=== PATIENT | male | born 1985 | race American Indian/Alaskan Native ===

== ENCOUNTER 2016-07-11 02:26 | Emergency (ER) | payer MEDICAID ==
[2016-07-11 03:37] LABS: Anion Gap 23 mmol/L; BUN/Creatinine Ratio 13.84; Blood Urea Nitrogen 18 mg/dL (9-20); Calcium 9.5 mg/dL (8.4-10.2); Carbon Dioxide 19 mmol/L (22-30); Chloride 102.2 mmol/L (98-107); Glucose 111 mg/dL (75-100); Potassium 3.9 mmol/L (3.6-5.0); Sodium 140 mmol/L (137-145)
[2016-07-11 03:40] LABS: Basophils % (Auto) 0.6 % (0.0-1.8); Eosinophils % (Auto) 1.2 % (0.0-4.3); Hematocrit 44.3 % (35.5-45.6); Hemoglobin 14.6 gm/dl (11.8-15.2); Mean Corpuscular HGB Conc 33 % (32-34); Mean Corpuscular Hemoglobin 28 pg (28-32); Mean Corpuscular Volume 86 fl (84-94); Platelet Count 381 K/mm3 (140-440); Red Blood Count 5.16 M/mm3 (3.65-5.03); Red Cell Distribution Width 13.8 % (13.2-15.2)
--- NOTE | 2016-07-11 03:43 | XRay Report ---
FINAL REPORT PROCEDURE: XR CHEST ROUTINE 2V TECHNIQUE: PA and lateral chest radiographs were obtained. CPT 65384 HISTORY: COUGH/CHEST PAIN COMPARISON: No prior studies are available for comparison. FINDINGS: Heart: Normal. Mediastinum/Vessels: Normal. Lungs/Pleural space: Normal. Bony thorax: No acute osseous abnormality. Other: IMPRESSION: There is no evidence of an acute cardiopulmonary process.
[2016-07-11] MEDS ORDERED: DUONEB 0.5 MG-3 MG/3 ML SOLN IH ONE (07:37)
[2016-07-11] MEDS ORDERED: DELTASONE PO ONE (07:37)
--- NOTE | 2016-07-11 07:38 | Emergency Department Report ---
HPI - General Chief Complaint: Upper Respiratory Infection Time Seen by Provider: 07/11/16 07:31 - HPI HPI: Patient here reports that he's been coughing times one week. He reported in triage that he was feeling short of breath but he said he is not feeling short of breath anymore his is coughing. He said when he coughs is having pain in his chest and upper back. It is 7 out of 10 only with coughing. Has a history of heart disease, recent long distance travel, hormone therapy, recent surgery, denies any history of blood clots personally or in his family. Denies any fever or chills or nausea vomiting. He also reports that he is very congested in his nose and he is coughing up yellow-green stuff. He said that he is coughing so much that he think he pulled a muscle in his chest and back. ED Past Medical Hx - Past Medical History Previous Medical History?: No - Surgical History Past Surgical History?: Yes Additional Surgical History: testicle surgery - Family History Family history: diabetes, hypertension - Social History Smoking Status: Current Every Day Smoker Substance Use Type: Alcohol, Marijuana - Medications Home Medications: Home Medications Medication Instructions Recorded Confirmed Last Taken Type Hydrocodone Bit/Acetaminophen 1 each PO Q6H PRN #12 tablet 02/28/13 Unknown Rx [Lortab 5-500 Tablet] Loratadine/Pseudoephedrine 1 each PO QDAY #30 tablet 06/24/14 Unknown Rx [Claritin-D 24HR] Albuterol Sulfate [Ventolin HFA] 2 puff IH Q4H PRN #1 hfa.aer.ad 07/11/16 Unknown Rx Amoxicillin/K Clav Tab [Augmentin 1 tab PO Q12HR #20 tab 07/11/16 Unknown Rx 875 mg] Cetirizine HCl [ZyrTEC] 10 mg PO QDAY #14 capsule 07/11/16 Unknown Rx guaiFENesin/CODEINE [Robitussin AC] 5 ml PO TID PRN #75 ml 07/11/16 Unknown Rx predniSONE [Deltasone] 50 mg PO QDAY #5 tab 07/11/16 Unknown Rx ED Review of Systems ROS: Stated complaint: CHEST PAIN/SOB Other details as noted in HPI Comment: All other systems reviewed and negative Constitutional: denies: chills, fever ENT: congestion. denies: ear pain, throat pain Respiratory: cough. denies: orthopnea, shortness of breath, SOB with exertion, SOB at rest, stridor, wheezing Cardiovascular: other (chest wall bilaterally with coughing). denies: palpitations, edema, syncope Gastrointestinal: denies: abdominal pain, nausea, vomiting, diarrhea Musculoskeletal: back pain (upper back pain with coughing), myalgia. denies: arthralgia Skin: denies: rash Neurological: denies: headache, numbness, abnormal gait, vertigo Physical Exam - Physical Exam Vital Signs: Vital Signs 07/11/16 02:42 Temperature 97.6 F Pulse Rate 95 H Respiratory 28 H Rate Blood Pressure 141/97 O2 Sat by Pulse 100 Oximetry Vital Signs 07/11/16 07/11/16 07/11/16 02:42 07:38 07:53 Temperature 97.6 F Pulse Rate 95 H 88 Pulse Rate [ 90 Bilateral Upper Lobe] Respiratory 28 H 18 Rate Respiratory 18 Rate [Bilateral Upper Lobe] Blood Pressure 141/97 O2 Sat by Pulse 100 100 Oximetry 07/11/16 07:59 Temperature Pulse Rate Pulse Rate [ 94 H Bilateral Upper Lobe] Respiratory Rate Respiratory 18 Rate [Bilateral Upper Lobe] Blood Pressure O2 Sat by Pulse Oximetry General: This is a 30-year-old male well-nourished well-developed in no acute distress. Physical Exam: Head: Normocephalic atraumatic Mouth: Moist, no pharyngeal exudate or erythema. Uvula is midline and oral airway is patent. No facial swelling. No peritonsillar abscesses. Nose: Congested with erythema to mucosa. Clear Drainage. Maxillary and frontal sinuses nontender to palpate Neck: Supple, no C-spine tenderness, no tracheal deviation. Nontender to palpate. no adenopathy Ears: Bilateral TMs congested without erythema. Bilateral EAC without any redness swelling or drainage. Abdomen: Soft, nontender to palpate in all quadrants, normal bowel sounds in all quadrant and negative CVA tenderness bilaterally. Back: No vertebral or paraspinal tenderness. No saddle anesthesia. Patient able to ambulate without any difficulties. Negative SLR bilaterally.. Eyes: Bilateral pupils equal and reactive to light, bilateral EOM intact. Bilateral sclera and conjunctiva without injection. Normal accommodation. No Lungs: scattered Wheezing throughout all lung garcia. Normal work of breathing . Dry cough extremity; No CCE. +2 pulses. No neurovascular compromise Cardiovascular: S1-S2, regular rate rhythm. No murmurs. Skin: clean Dry and intact no rash no lesions Psych: Normal mood and behavior ED Course Vital Signs 07/11/16 02:42 Temperature 97.6 F Pulse Rate 95 H Respiratory 28 H Rate Blood Pressure 141/97 O2 Sat by Pulse 100 Oximetry Vital Signs 07/11/16 07/11/16 07/11/16 02:42 07:38 07:53 Temperature 97.6 F Pulse Rate 95 H 88 Pulse Rate [ 90 Bilateral Upper Lobe] Respiratory 28 H 18 Rate Respiratory 18 Rate [Bilateral Upper Lobe] Blood Pressure 141/97 O2 Sat by Pulse 100 100 Oximetry 07/11/16 07:59 Temperature Pulse Rate Pulse Rate [ 94 H Bilateral Upper Lobe] Respiratory Rate Respiratory 18 Rate [Bilateral Upper Lobe] Blood Pressure O2 Sat by Pulse Oximetry - Reevaluation(s) Reevaluation #1: 07/11/16 08:41 Patient stable throughout ED course He was given Deltasone 60 mg by mouth and DuoNeb times one nebulizer and said that he is feeling better. Denies any chest pain or shortness of breath. 07/11/16 08:42 Reevaluation #2: 07/11/16 08:51 reevaluation, lungs sounds are clear. Face is dry cough. ED Medical Decision Making - Lab Data Result diagrams: 07/11/16 02:51 07/11/16 02:51 Lab Results 07/11/16 07/11/16 Range/Units 02:51 02:51 WBC 9.0 (4.5-11.0) K/mm3 RBC 5.16 H (3.65-5.03) M/mm3 Hgb 14.6 (11.8-15.2) gm/dl Hct 44.3 (35.5-45.6) % MCV 86 (84-94) fl MCH 28 (28-32) pg MCHC 33 (32-34) % RDW 13.8 (13.2-15.2) % Plt Count 381 (140-440) K/mm3 Lymph % (Auto) 29.9 (13.4-35.0) % [place] % (Auto) 7.3 (0.0-7.3) % Eos % (Auto) 1.2 (0.0-4.3) % Baso % (Auto) 0.6 (0.0-1.8) % Lymph # 2.7 (1.2-5.4) K/mm3 [place] # 0.7 (0.0-0.8) K/mm3 Eos # 0.1 (0.0-0.4) K/mm3 Baso # 0.1 (0.0-0.1) K/mm3 Seg Neutrophils % 61.0 (40.0-70.0) % Seg Neutrophils # 5.5 (1.8-7.7) K/mm3 Sodium 140 (137-145) mmol/L Potassium 3.9 (3.6-5.0) mmol/L Chloride 102.2 (98-107) mmol/L Carbon Dioxide 19 L (22-30) mmol/L Anion Gap 23 mmol/L BUN 18 (9-20) mg/dL Creatinine 1.3 (0.8-1.5) mg/dL Estimated GFR > 60 ml/min BUN/Creatinine Ratio 13.84 % Glucose 111 H (75-100) mg/dL Calcium 9.5 (8.4-10.2) mg/dL - EKG Data -: EKG Interpreted by Me (Dr. Jackman) EKG shows normal: sinus rhythm (at 90 bpm) Rate: normal - EKG Data Interpretation: no acute changes, nonspecific ST-T wave rip - Radiology Data Radiology results: report reviewed Chest x-ray revealed no acute cardiopulmonary findings. - Medical Decision Making ED course: Patient with acute bronchitis, cough And musculoskeletal pain secondary to coughing. Chest x-ray revealed no acute cardiopulmonary processes , No acute findings and EKG. Lab work is stable with normal white count .on PERC Rule No need for further workup, as <2% chance of PE. Patient was given DuoNeb 1 and Deltasone 60 mg by mouth in emergency room. vital Signs are stable. I discussed lab results, diagnostic and EKG with patient and I also discussed the diagnosis and treatment plan and is in agreement. Patient discharged home to follow up with his primary care and if he does not have one to follow-up at [facility] in 3-5 days. Discharged home in stable condition with prescription for Guaifenessin with codeine, Ventolin, prednisone , Augmentin and Zyrtec. Critical care attestation.: If time is entered above; I have spent that time in minutes in the direct care of this critically ill patient, excluding procedure time. ED Disposition Clinical Impression: Cough, Musculoskeletal pain Acute bronchitis Qualifiers: Bronchitis organism: unspecified organism Qualified Code(s): J20.9 - Acute bronchitis, unspecified Disposition: DISCHARGED TO HOME OR SELFCARE Is pt being admited?: No Does the pt Need Aspirin: No Condition: Stable Instructions: Acute Bronchitis (ED), Acute Cough (ED) Additional Instructions: Please take antibiotic as prescribed Increase her fluid intake Follow-up with primary care or at [facility] in 3-5 days Cough medicine will cause drowsiness so, please do not drive or operate heavy machinery while taking this medication. Prescriptions: Albuterol Sulfate [Ventolin HFA] 2 puff IH Q4H PRN #1 hfa.aer.ad PRN Reason: wheezing and cough Amoxicillin/K Clav Tab [Augmentin 875 mg] 1 tab PO Q12HR #20 tab Cetirizine HCl [ZyrTEC] 10 mg PO QDAY #14 capsule guaiFENesin/CODEINE [Robitussin AC] 5 ml PO TID PRN #75 ml PRN Reason: Cough predniSONE [Deltasone] 50 mg PO QDAY #5 tab Referrals: PRIMARY CARE, [Primary Care Provider] - 3-5 Days [facility] [Outside] - 3-5 Days Forms: Work/School Release Form(ED)
[2016-07-11 09:31] VITALS: BP 138/90
== END 2016-07-11 09:30 | disposition home or self-care (01) ==
LOC: ED 02:26
DX: J20.9 Acute bronchitis, unspecified (principal); M79.1 Myalgia; F17.200 Nicotine dependence, unspecified, uncomplicated; F12.90 Cannabis use, unspecified, uncomplicated
CPT/HCPCS: 36415; 71020; 80048; 85025; 93005; 93010; 94640; 99284; J7512

== ENCOUNTER 2017-06-15 11:00 | Outpatient (CLI) | payer MEDICAID | END 2017-06-15 11:01 | disposition home or self-care (01) | LOC: SLR 11:00 | PROVIDERS: ATTEND Otolaryngology | DX: G47.30 Sleep apnea, unspecified (principal); I10 Essential (primary) hypertension; R40.0 Somnolence | CPT/HCPCS: 95810 ==

== ENCOUNTER → 2017-07-15 | Outpatient (CLI) | payer MEDICAID | LOC: SLR 11:00 | PROVIDERS: ATTEND Otolaryngology | DX: G47.33 Obstructive sleep apnea (adult) (pediatric) (principal); F17.210 Nicotine dependence, cigarettes, uncomplicated | CPT/HCPCS: 95811 ==

== ENCOUNTER 2017-09-17 21:25 | Emergency (ER) | payer MEDICAID ==
[2017-09-17] MEDS ORDERED: NACL 0.9% 500 ML 500 ML ONE (22:28)
[2017-09-17 22:29] LABS: Basophils % (Auto) 0.2 % (0.0-1.8); Eosinophils # (Auto) 0.1 K/mm3 (0.0-0.4); Eosinophils % (Auto) 0.6 % (0.0-4.3); Hematocrit 49.7 % (35.5-45.6); Hemoglobin 16.1 gm/dl (11.8-15.2); Lymphocytes # (Auto) 0.6 K/mm3 (1.2-5.4); Lymphocytes % (Auto) 4.3 % (13.4-35.0); Mean Corpuscular HGB Conc 33 % (32-34); Mean Corpuscular Hemoglobin 28 pg (28-32); Mean Corpuscular Volume 86 fl (84-94); Monocytes % (Auto) 6.6 % (0.0-7.3); Platelet Count 397 K/mm3 (140-440); Red Blood Count 5.78 M/mm3 (3.65-5.03)
[2017-09-17 22:45] LABS: Alanine Aminotransferase 27 units/L (7-56); BUN/Creatinine Ratio 13; Blood Urea Nitrogen 14 mg/dL (9-20); Calcium 9.7 mg/dL (8.4-10.2); Hemolysis Index 1
[2017-09-17 23:40] VITALS: BP 143/80
[2017-09-17] MEDS ORDERED: MORPHINE IV ONE (23:53)
[2017-09-17] MEDS ORDERED: ZOFRAN IV ONE (23:53)
[2017-09-17] MEDS ORDERED: NACL 0.9% 1000 ML 1,000 ML IV ONE (23:53)
[2017-09-17] MEDS ORDERED: PEPCID IV ONE (23:54)
[2017-09-18 00:18] LABS: Bilirubin,Urine NEG (Negative); Blood,Urine NEG (Negative); Color,Urine Yellow (Yellow); Mucus,Urine FEW /HPF; Urobilinogen,Urine < 2.0 mg/dL (<2.0)
--- NOTE | 2017-09-18 00:18 | Emergency Department Report ---
HPI - General Chief Complaint: Abdominal Pain Time Seen by Provider: 09/17/17 23:18 - HPI HPI: Room 25 The patient is a 32-year-old male presenting with chief complaint of abdominal pain. The patient states he was in his usual state of health until this afternoon approximately 30 minutes after eating leftover jb greens and cheesecake he developed nausea vomiting diarrhea and diffuse aching abdominal pain dizziness and body aches. Patient denies any history of fever. There are no sick contacts in the home. The patient gives his pain is scored 3-4/10 Location: Diffuse abdomen Duration: Constant since 16:30 Quality: Aching Severity: 3-4/10 Modifying factors: [see above] Context: [see above] Mode of transportation: [not driving] ED Past Medical Hx - Past Medical History Previous Medical History?: No - Surgical History Past Surgical History?: Yes Additional Surgical History: Testicular torsion repair - Family History Family history: no significant - Social History Smoking Status: Current Every Day Smoker (1/7 pack per day) Substance Use Type: Alcohol, Marijuana - Medications Home Medications: Home Medications Medication Instructions Recorded Confirmed Last Taken Type Hydrocodone Bit/Acetaminophen 1 each PO Q6H PRN #12 tablet 02/28/13 Unknown Rx [Lortab 5-500 Tablet] Loratadine/Pseudoephedrine 1 each PO QDAY #30 tablet 06/24/14 Unknown Rx [Claritin-D 24HR] Albuterol Sulfate [Ventolin HFA] 2 puff IH Q4H PRN #1 hfa.aer.ad 07/11/16 Unknown Rx Amoxicillin/K Clav Tab [Augmentin 1 tab PO Q12HR #20 tab 07/11/16 Unknown Rx 875 mg] Cetirizine HCl [ZyrTEC] 10 mg PO QDAY #14 capsule 07/11/16 Unknown Rx guaiFENesin/CODEINE [Robitussin AC] 5 ml PO TID PRN #75 ml 07/11/16 Unknown Rx predniSONE [Deltasone] 50 mg PO QDAY #5 tab 07/11/16 Unknown Rx Ciprofloxacin HCl [Cipro] 500 mg PO BID #20 tablet 09/18/17 Unknown Rx Diphenoxylate HCl/Atropine 2 each PO QID PRN #20 tablet 09/18/17 Unknown Rx [Lomotil 2.5-0.025 mg Tablet] HYDROcodone/APAP 5-325 [[place] 1 - 2 each PO Q6HR PRN #10 tablet 09/18/17 Unknown Rx 5/325] Promethazine [Phenergan TAB] 25 mg PO Q6HR PRN #20 tab 09/18/17 Unknown Rx Promethazine [Phenergan] 25 mg AL Q6HR PRN #5 supp.rect 09/18/17 Unknown Rx ED Review of Systems ROS: Stated complaint: ABD PAIN Other details as noted in HPI Physical Exam - Physical Exam Vital Signs: Vital Signs 09/17/17 09/17/17 09/17/17 22:16 22:30 22:45 Pulse Rate 101 H 96 H 87 Respiratory 15 13 13 Rate Blood Pressure 123/69 123/69 O2 Sat by Pulse 100 97 98 Oximetry 09/17/17 09/17/17 09/17/17 23:00 23:15 23:31 Pulse Rate 97 H 101 H 100 H Respiratory 19 16 15 Rate Blood Pressure 143/80 143/80 143/80 O2 Sat by Pulse 93 99 95 Oximetry 09/17/17 23:37 Pulse Rate Respiratory 22 Rate Blood Pressure O2 Sat by Pulse 99 Oximetry ED Course Vital Signs 09/17/17 09/17/17 09/17/17 22:16 22:30 22:45 Pulse Rate 101 H 96 H 87 Respiratory 15 13 13 Rate Blood Pressure 123/69 123/69 O2 Sat by Pulse 100 97 98 Oximetry 09/17/17 09/17/17 09/17/17 23:00 23:15 23:31 Pulse Rate 97 H 101 H 100 H Respiratory 19 16 15 Rate Blood Pressure 143/80 143/80 143/80 O2 Sat by Pulse 93 99 95 Oximetry 09/17/17 23:37 Pulse Rate Respiratory 22 Rate Blood Pressure O2 Sat by Pulse 99 Oximetry ED Medical Decision Making - Lab Data Result diagrams: 09/17/17 22:20 09/17/17 22:20 Laboratory Tests 09/17/17 09/17/17 09/17/17 22:20 22:20 22:20 WBC 14.7 H RBC 5.78 H Hgb 16.1 H Hct 49.7 H MCV 86 MCH 28 MCHC 33 RDW 14.0 Plt Count 397 Lymph % (Auto) 4.3 L [place] % (Auto) 6.6 Eos % (Auto) 0.6 Baso % (Auto) 0.2 Lymph # 0.6 L [place] # 1.0 H Eos # 0.1 Baso # 0.0 Seg Neutrophils % 88.3 H Seg Neutrophils # 13.0 H Sodium 140 Potassium 4.1 Chloride 98.8 Carbon Dioxide 27 Anion Gap 18 BUN 14 Creatinine 1.1 Estimated GFR > 60 BUN/Creatinine Ratio 13 Glucose 112 H Calcium 9.7 Total Bilirubin 0.70 AST 23 ALT 27 Alkaline Phosphatase 77 Total Protein 8.1 Albumin 5.0 Albumin/Globulin Ratio 1.6 Lipase 30 Urine Color Urine Turbidity Urine pH Ur Specific [place] Urine Protein Urine Glucose (UA) Urine Ketones Urine Blood Urine Nitrite Urine Bilirubin Urine Urobilinogen Ur Leukocyte Esterase Urine WBC (Auto) Urine RBC (Auto) U Epithel Cells (Auto) Urine Mucus 09/17/17 Unknown WBC RBC Hgb Hct MCV MCH MCHC RDW Plt Count Lymph % (Auto) [place] % (Auto) Eos % (Auto) Baso % (Auto) Lymph # [place] # Eos # Baso # Seg Neutrophils % Seg Neutrophils # Sodium Potassium Chloride Carbon Dioxide Anion Gap BUN Creatinine Estimated GFR BUN/Creatinine Ratio Glucose Calcium Total Bilirubin AST ALT Alkaline Phosphatase Total Protein Albumin Albumin/Globulin Ratio Lipase Urine Color Yellow Urine Turbidity Clear Urine pH 8.0 H Ur Specific [place] 1.019 Urine Protein 30 mg/dl Urine Glucose (UA) Neg Urine Ketones Neg Urine Blood Neg Urine Nitrite Neg Urine Bilirubin Neg Urine Urobilinogen < 2.0 Ur Leukocyte Esterase Neg Urine WBC (Auto) 1.0 Urine RBC (Auto) 2.0 U Epithel Cells (Auto) < 1.0 Urine Mucus Few - Radiology Data Radiology results: report reviewed (CT abdomen and pelvis), image reviewed (CT abdomen and pelvis) [address] [address] Cat Scan Report Signed Patient: EMELY FLOR MR#: [id number] : 1985 Acct:[id number] Age/Sex: 32 / M ADM Date: 09/17/17 Loc: ED Attending Dr: Ordering Physician: STEPHANIE DEJESUS MD Date of Service: 09/18/17 Procedure(s): CT abdomen pelvis w con Accession Number(s): [id number] cc: STEPHANIE DEJESUS MD FINAL REPORT EXAM: CT ABDOMEN PELVIS W CON HISTORY: diffuse abdominal pain n/v/d TECHNIQUE: Routine axial imaging was obtained of the abdomen and pelvis following the intravenous injection of 100 cc of Omnipaque 350. Delayed imaging was obtained through the kidneys ureters and bladder. Sagittal and coronal reconstructions were reviewed. FINDINGS: The lung bases are clear. Pleural fluid is not seen The liver, gallbladder, biliary tree, pancreas, spleen, and adrenal glands appear normal. The kidneys enhance normally. There is no evidence of hydronephrosis. The abdominal aorta is normal in caliber. The vasculatures enhance normally. The bowel loops reveal mild distension of ileal loops with a few small air-fluid levels. There is no evidence of transition point or obstruction. A mild enteritis/nonobstructive ileus cannot be excluded. The appendix appears normal. There is no evidence of free fluid or adenopathy. In the pelvis the prostate gland and bladder appear normal. The skeletal structures are unremarkable. IMPRESSION: Mild distension of ileal loops with a few small air-fluid levels. And underlying mild enteritis/nonobstructing ileus cannot be excluded. No evidence of bowel obstruction. Normal appendix. Transcribed By: RB Dictated By: YOLIE ZHOU MD Electronically Authenticated By: YOLIE ZHOU MD Signed Date/Time: 09/18/1755 DD/ TD/TT: 09/18/1755 - Differential Diagnosis gastroenteritis, enteritis, partial small bowel obstruction, Critical care attestation.: If time is entered above; I have spent that time in minutes in the direct care of this critically ill patient, excluding procedure time. ED Disposition Clinical Impression: Acute gastroenteritis, Acute abdominal pain, Nausea vomiting and diarrhea Disposition: TO HOME OR SELFCARE Is pt being admited?: No Does the pt Need Aspirin: No Condition: Stable Instructions: Acute Nausea and Vomiting (ED), Abdominal Pain (ED) Additional Instructions: Return to the emergency department immediately should you develop worsening symptoms, fever, inability to tolerate food or liquid or any other concerns. Prescriptions: Ciprofloxacin HCl [Cipro] 500 mg PO BID #20 tablet Diphenoxylate HCl/Atropine [Lomotil 2.5-0.025 mg Tablet] 2 each PO QID PRN #20 tablet PRN Reason: Diarrhea HYDROcodone/APAP 5-325 [[place] 5/325] 1 - 2 each PO Q6HR PRN #10 tablet PRN Reason: Pain Promethazine [Phenergan TAB] 25 mg PO Q6HR PRN #20 tab PRN Reason: Nausea Promethazine [Phenergan] 25 mg AL Q6HR PRN #5 supp.rect PRN Reason: Nausea Referrals: PRIMARY CARE, [Primary Care Provider] - 3-5 Days SHILO ENG MD [Staff Physician] - 3-5 Days (Dr. Eng is a imaging nurse. Please follow-up with him for further evaluation) Time of Disposition: 01:48
--- NOTE | 2017-09-18 01:01 | Cat Scan Report ---
FINAL REPORT EXAM: CT ABDOMEN PELVIS W CON HISTORY: diffuse abdominal pain n/v/d TECHNIQUE: Routine axial imaging was obtained of the abdomen and pelvis following the intravenous injection of 100 cc of Omnipaque 350. Delayed imaging was obtained through the kidneys ureters and bladder. Sagittal and coronal reconstructions were reviewed. FINDINGS: The lung bases are clear. Pleural fluid is not seen The liver, gallbladder, biliary tree, pancreas, spleen, and adrenal glands appear normal. The kidneys enhance normally. There is no evidence of hydronephrosis. The abdominal aorta is normal in caliber. The vasculatures enhance normally. The bowel loops reveal mild distension of ileal loops with a few small air-fluid levels. There is no evidence of transition point or obstruction. A mild enteritis/nonobstructive ileus cannot be excluded. The appendix appears normal. There is no evidence of free fluid or adenopathy. In the pelvis the prostate gland and bladder appear normal. The skeletal structures are unremarkable. IMPRESSION: Mild distension of ileal loops with a few small air-fluid levels. And underlying mild enteritis/nonobstructing ileus cannot be excluded. No evidence of bowel obstruction. Normal appendix.
== END 2017-09-18 02:35 | disposition home or self-care (01) ==
LOC: ED 21:25
DX: K52.9 Noninfective gastroenteritis and colitis, unspecified (principal); R11.2 Nausea with vomiting, unspecified; F17.200 Nicotine dependence, unspecified, uncomplicated
CPT/HCPCS: 36415; 74177; 80053; 81001; 83690; 85025; 93005; 93010; 96361; 96374; 96375; 99284; J2270; J2405; J7030; J7040; Q9967

== ENCOUNTER 2019-01-17 07:28 | Emergency (ER) | payer MEDICAID ==
[2019-01-17 07:39] VITALS: BP 149/93
--- NOTE | 2019-01-17 07:59 | XRay Report ---
Right hand-2 views INDICATION: trauma, pain. COMPARISON: None. IMPRESSION: Mild soft tissue swelling about the ulnar aspect of the hand/wrist, with no acute fractu re identified. Old fifth metacarpal fracture noted. Signer Name: Hugh Medina MD Signed: 01/17/2019 7:55 AM Workstation Name: [id number]
[2019-01-17] MEDS ORDERED: HYDROcodone/ACETAMINOPHEN 5-325 MG TAB PO ONE (08:07)
--- NOTE | 2019-01-17 08:18 | Emergency Department Report ---
HPI - General Chief Complaint: Extremity Injury, Upper Time Seen by Provider: 01/17/19 07:53 - HPI HPI: 33-year-old -Citizen Of [place] male presents to the emergency department with complaint of pain to the right pinky finger when it accidentally got crushed while the patient was fixing something. He also presents with some blood underneath the nail. He is left-hand dominant. He denies any restriction to range of motion in the affected right pinky finger. He did not take anything for his symptoms prior to arrival. ED Past Medical Hx - Past Medical History Previous Medical History?: No - Surgical History Past Surgical History?: Yes Additional Surgical History: Testicular torsion repair - Social History Smoking Status: Current Every Day Smoker Substance Use Type: None - Medications Home Medications: Home Medications Medication Instructions Recorded Confirmed Last Taken Type Hydrocodone Bit/Acetaminophen 1 each PO Q6H PRN #12 tablet 02/28/13 Unknown Rx [Lortab 5-500 Tablet] Loratadine/Pseudoephedrine 1 each PO QDAY #30 tablet 06/24/14 Unknown Rx [Claritin-D 24HR] Albuterol Sulfate [Ventolin HFA] 2 puff IH Q4H PRN #1 hfa.aer.ad 07/11/16 Unknown Rx Amoxicillin/K Clav Tab [Augmentin 1 tab PO Q12HR #20 tab 07/11/16 Unknown Rx 875 mg] Cetirizine HCl [ZyrTEC] 10 mg PO QDAY #14 capsule 07/11/16 Unknown Rx guaiFENesin/CODEINE [Robitussin AC] 5 ml PO TID PRN #75 ml 07/11/16 Unknown Rx predniSONE [Deltasone] 50 mg PO QDAY #5 tab 07/11/16 Unknown Rx Ciprofloxacin HCl [Cipro] 500 mg PO BID #20 tablet 09/18/17 Unknown Rx Diphenoxylate HCl/Atropine 2 each PO QID PRN #20 tablet 09/18/17 Unknown Rx [Lomotil 2.5-0.025 mg Tablet] HYDROcodone/APAP 5-325 [[place] 1 - 2 each PO Q6HR PRN #10 tablet 09/18/17 Unknown Rx 5/325] Promethazine [Phenergan TAB] 25 mg PO Q6HR PRN #20 tab 09/18/17 Unknown Rx Promethazine [Phenergan] 25 mg [place] Q6HR PRN #5 supp.rect 09/18/17 Unknown Rx Gentamicin 0.3% Ophth Soln 2 drops OD Q8H 7 Days #1 bottle 01/07/18 Unknown Rx Ibuprofen [Motrin] 800 mg PO Q8HR PRN #15 tablet 01/07/18 Unknown Rx methOCARBAMOL [Robaxin TAB] 500 mg PO Q6H #20 tablet 09/29/18 Unknown Rx Ibuprofen [Motrin 800 MG tab] 800 mg PO Q8HR PRN #20 tablet 01/17/19 Unknown Rx ED Review of Systems ROS: Stated complaint: R PINKY FINGER PAIN/POSS BROKEN Other details as noted in HPI Comment: All other systems reviewed and negative Constitutional: denies: chills, fever Musculoskeletal: joint swelling, arthralgia Skin: other (subungual hematoma). denies: rash Neurological: denies: numbness, paresthesias Physical Exam - Physical Exam Vital Signs: Vital Signs 01/17/19 07:38 Temperature 98 F Pulse Rate 83 Respiratory 16 Rate Blood Pressure 149/93 O2 Sat by Pulse 98 Oximetry Physical Exam: GENERAL: The patient is well-developed well-nourished. HENT: Normocephalic. Atraumatic. Patient has moist mucous membranes. EYES: Extraocular motions are intact. NECK: Supple. Trachea is midline. ABDOMEN: There is no abdominal distention. SKIN: Subungual hematoma to the right fifth finger nail. NEURO: The patient is awake, alert, and oriented. The patient is cooperative. The patient has no focal neurologic deficits. Normal speech. MUSCULOSKELETAL: Tenderness to palpation along the right fifth finger. There is no limitation range of motion. Capillary refill less than 2 seconds. ED Course Vital Signs 01/17/19 07:38 Temperature 98 F Pulse Rate 83 Respiratory 16 Rate Blood Pressure 149/93 O2 Sat by Pulse 98 Oximetry - Procedure Description Procedures done: Procedure: Nail trephination. The right fifth fingernail was trephinated using electrical cautery. There was a release of blood from underneath the nail and the patient has received some relief. No obvious complications from this procedure. ED Medical Decision Making - Radiology Data Radiology results: image reviewed interpreted by me: X-ray of the right pinky finger does not show any fracture or dislocation. - Medical Decision Making Patient presents with some type of a crush injury to the right pinky finger. X- ray was done that does not show any fracture or dislocation. He has a subungual hematoma that was trephinated. He was given a referral for an orthopedist. He will return to the ER with any worsening of his symptoms or any acute distress. - Differential Diagnosis fracture, dislocation, subungual hematoma, contusion Critical Care Time: No Critical care attestation.: If time is entered above; I have spent that time in minutes in the direct care of this critically ill patient, excluding procedure time. ED Disposition Clinical Impression: Subungual hematoma Finger injury Qualifiers: Encounter type: initial encounter Laterality: right Qualified Code(s): S69.91XA - Unspecified injury of right wrist, hand and finger(s), initial encounter Finger contusion Qualifiers: Encounter type: initial encounter Finger: little finger Damage to nail status: without damage Laterality: right Qualified Code(s): S60.051A - Contusion of right little finger without damage to nail, initial encounter Disposition: - TO HOME OR SELFCARE Is pt being admited?: No Condition: Stable Instructions: Subungual Hematoma (ED) Additional Instructions: Soaked the fingernail in warm water to try and release any further blood from underneath the nail. You can use ice, but not directly against the skin, for your finger swelling. Follow-up with your primary care physician. I have given you a referral for a local orthopedist, Dr. Rodriguez, in case she needs to follow up regarding your finger injury. Return to the emergency Department with any worsening of your symptoms or any acute distress. Prescriptions: Ibuprofen [Motrin 800 MG tab] 800 mg PO Q8HR PRN #20 tablet PRN Reason: Pain , Severe (7-10) Referrals: PRIMARY MD KYARA [Primary Care Provider] - 3-5 Days YOLIE RODRIGUEZ MD [Staff Physician] - 3-5 Days Time of Disposition: 08:19
== END 2019-01-17 08:42 | disposition home or self-care (01) ==
LOC: ED 07:28
DX: S60.151A Contusion of right little finger with damage to nail, initial encounter (principal); F17.200 Nicotine dependence, unspecified, uncomplicated; Z79.899 Other long term (current) drug therapy; W22.8XXA Striking against or struck by other objects, initial encounter; Y93.89 Activity, other specified; Y92.89 Other specified places as the place of occurrence of the external cause; Y99.8 Other external cause status